=== PATIENT | male | born 1995 | race Caucasian/White ===

== ENCOUNTER 2019-11-10 16:50 | Emergency (ER) | payer MEDICAID ==
[~2019-11-10] VITALS: Ht 180.3 cm; Wt 74.2 kg
[2019-11-10 16:56] VITALS: BP 133/68
[2019-11-10] MEDS ORDERED: PENI500T2 PO (17:50)
[2019-11-10] MEDS ORDERED: IBUP-1984 PO (17:50)
== END 2019-11-10 18:03 | disposition home or self-care (01) ==
LOC: ER 16:52
DX: K05.219 Aggressive periodontitis, localized, unspecified severity (principal); F12.90 Cannabis use, unspecified, uncomplicated; F14.90 Cocaine use, unspecified, uncomplicated; Z79.899 Other long term (current) drug therapy
CPT/HCPCS: 99283